=== PATIENT | male | born 1980 ===

== ENCOUNTER 2018-10-19 13:25 | Emergency (ER) | payer MEDICAID ==
[2018-10-19 13:38] VITALS: RESP 18; TEMP 98.8
[2018-10-19] MEDS ORDERED: Tdap Vaccine 0.5 ml Vial (10-64 yrs) IM ONE ×2 (13:40→14:20)
--- NOTE | 2018-10-19 14:01 | C.PDOC ---
History Of Present Illness 38 y/o male, with history of epilepsy and takes Keppra, is brought in by ambulance for seizure. As per EMS, patient developed generalized seizure that was witnessed by a bystander on the street. As per EMS, witness states the patient fell and hit his head on the ground and sustained a laceration to the right upper eyelid. Patient is presented to the ER post-ictal, confused, but improving quickly. Time Seen by Provider: 10/19/18 13:31 Chief Complaint (Nursing): Seizure History Per: EMS History/Exam Limitations: no limitations Recent Seizure Activity Began: Just Before Arrival Quality Of Seizure: Generalized Post-ictal Period: Yes Past Medical History Reviewed: Historical Data, Nursing Documentation, Vital Signs Vital Signs: Last Vital Signs Temp 98.8 F 10/19/18 13:31 Pulse 94 H 10/19/18 13:31 Resp 18 10/19/18 13:31 BP 132/83 10/19/18 13:31 Pulse Ox 95 10/19/18 13:31 - Medical History PMH: Seizures (HAD ONE 15 DAYS AGO) Denies: Diabetes, Hepatitis, HIV, HTN, Sexually Transmitted Disease Family History: States: No Known Family Hx - Social History Hx Tobacco Use: No Hx Alcohol Use: No Hx Substance Use: No - Immunization History Hx Tetanus Toxoid Vaccination: No Hx Influenza Vaccination: No Hx Pneumococcal Vaccination: No Review Of Systems Except As Marked, All Systems Reviewed And Found Negative. Musculoskeletal: Negative for: Neck Pain Skin: Positive for: Other (laceration to right upper eyelid) Neurological: Positive for: Seizures Physical Exam - Physical Exam Appears: Non-toxic, No Acute Distress Skin: Warm, Dry Head: Abrasion (to right face), Laceration (to right upper eyelid, no bleeding) Eye(s): bilateral: Normal Inspection Oral Mucosa: Moist Neck: Supple Cardiovascular: Rhythm Regular, No Murmur Respiratory: Normal Breath Sounds, No Rales, No Rhonchi, No Wheezing Gastrointestinal/Abdominal: Soft, No Tenderness Extremity: Bilateral: Atraumatic, Normal Color And Temperature, Normal ROM Neurological/Psych: Other (AAOx2) ED Course And Treatment - Laboratory Results Result Diagrams: 10/19/18 14:11 10/19/18 14:11 Lab Interpretation: No Acute Changes ECG: Interpreted By Me, Viewed By Me ECG Rhythm: Sinus Rhythm Interpretation Of ECG: Incomplete R BBB. Rate From EC O2 Sat by Pulse Oximetry: 95 (RA) Pulse Ox Interpretation: Normal - CT Scan/US Head CT Other Rad Studies (CT/US): Read By Radiologist, Radiology Report Reviewed CT/US Interpretation: FINDINGS: HEMORRHAGE: No intracranial hemorrhage. BRAIN : No mass effect or edema. Scattered focal lucencies in the subcortical and periventricular white matter suggestive for chronic microvascular ischemic change. Prominent cerebellar atrophy. VENTRICLES: Unremarkable. No hydrocephalus. CALVARIUM: Small defects noted within the bifrontal cranium. Clinical correlation. PARANASAL SINUSES: Unremarkable as visualized. No significant inflammatory changes. MASTOID AIR CELLS: Unremarkable as visualized. No inflammatory changes. OTHER FINDINGS: Prominent soft tissue swelling overlying the right frontal cranium and periorbital region. IMPRES SAURAV: Prominent soft tissue swelling overlying the right frontal cranium and periorbital region. No acute intracranial abnormality. Severe cerebellar atrophy. Chronic microvascular ischemic changes. Correlation with MRI may helpful if clinically indicated. Maxillofacial CT Other Rad Studies (CT/US): Read By Radiologist, Radiology Report Reviewed CT/US Interpretation: FINDINGS: Large amount of soft tissue swelling seen overlying the right frontal cranium, right periorbital region, and right pre maxillary soft tissues. No evidence of acute displaced fracture or dislocation of the visualized facial bones. Small defect seen within the posterior left frontal parietal cranium. Clinical correlation. Minimal mucosal thickening of the bilateral maxillary sinuses. Minimal mucosal thickening of the ethmoid air cells. Frontal sinus and sphenoid sinuses are preserved. Mastoid air cells are preserved. Orbital globes appear grossly preserved. Again noted is severe cerebellar atrophy. Impression: 1. Large amount of soft tissue swelling seen overlying the right frontal cranium, right periorbital region, and right pre maxillary soft tissues. 2. No evidence of acute displaced fracture or dislocation of the visualized facial bones. 3. Small defect seen within the posterior left frontal parietal cranium. Clinical correlation. 4. Again noted is severe cerebellar atrophy. 5. Minimal mucosal thickening of the bilateral maxillary sinuses. Minimal mucosal thickening of the ethmoid air cells. Progress Note: No seizure during ER observation. Alert and oriented x3. Mother present. Reassessment Condition: Improved Medical Decision Making Medical Decision Making: Plan: --Head CT --Labs --Tdap --Keppra 14:17 Patient is AAOx3 now. Disposition Counseled Patient/Family Regarding: Diagnosis, Need For Followup - Disposition Disposition: HOME/ ROUTINE Disposition Time: 16:21 Condition: STABLE Instructions: Epilepsy in Adults, Skin Abrasions (DC) Forms: Gen Discharge Inst Arabic, [facility] (Setswana), Work Excuse Print Language: VIET[place]ESE - Clinical Impression Clinical Impression: Seizure disorder, Seizure, Abrasion of face - Scribe Statement The provider has reviewed the documentation as recorded by the Kaleighibricky Keating Provider Attestation: All medical record entries made by the Elmer were at my direction and personally dictated by me. I have reviewed the chart and agree that the record accurately reflects my personal performance of the history, physical exam, medical decision making, and the department course for this patient. I have also personally directed, reviewed, and agree with the discharge instructions and disposition.
[2018-10-19 14:17] LABS: BASO % 1.2 % (0.0-2.0); EOS # 0.1 K/uL (0.0-0.7); HEMOGLOBIN 14.7 g/dL (12.0-18.0); LYMPH # 1.4 K/uL (1.0-4.3); LYMPH % 34.2 % (20.0-40.0); MEAN CORPUSCULAR HEMOGLOBIN 32.3 pg (27.0-31.0); MEAN CORPUSCULAR HGB CONC 35.3 g/dL (33.0-37.0); MEAN PLATELET VOLUME 7.2 fL (7.2-11.7); MONO # 0.4 K/uL (0.0-0.8); MONO % 9.5 % (0.0-10.0); NEUT # 2.1 K/uL (1.8-7.0); NEUT % 52.1 % (50.0-75.0); RBC 4.55 Mil/uL (4.40-5.90); RED CELL DISTRIBUTION WIDTH 13.8 % (11.5-14.5)
[2018-10-19 14:18] LABS: MEAN CELL VOLUME 91.4 fL (80.0-94.0)
[2018-10-19 14:28] LABS: ALB/GLOB RATIO 1.7 (1.0-2.1); ALBUMIN 4.3 g/dL (3.5-5.0); ALT/SGPT 26 U/L (21-72); AST/SGOT 26 U/L (17-59); BLOOD UREA NITROGEN 8 mg/dL (9-20); CALCIUM 9.2 mg/dl (8.6-10.4); GFR NON-AFRICAN AMERICAN > 60
--- NOTE | 2018-10-19 16:14 | CT ---
Date of service: 10/19/2018 PROCEDURE: CT HEAD WITHOUT CONTRAST. HISTORY: seizure COMPARISON: None available. TECHNIQUE: Axial computed tomography images were obtained through the head/brain without intravenous contrast. Radiation dose: Total exam DLP = 1089.95 mGy-cm. This CT exam was performed using one or more of the following dose reduction techniques: Automated exposure control, adjustment of the mA and/or kV according to patient size, and/or use of iterative reconstruction technique. FINDINGS: HEMORRHAGE: No intracranial hemorrhage. BRAIN: No mass effect or edema. Scattered focal lucencies in the subcortical and periventricular white matter suggestive for chronic microvascular ischemic change. Prominent cerebellar atrophy. VENTRICLES: Unremarkable. No hydrocephalus. CALVARIUM: Small defects noted within the bifrontal cranium. Clinical correlation. PARANASAL SINUSES: Unremarkable as visualized. No significant inflammatory changes. MASTOID AIR CELLS: Unremarkable as visualized. No inflammatory changes. OTHER FINDINGS: Prominent soft tissue swelling overlying the right frontal cranium and periorbital region. IMPRESSION: Prominent soft tissue swelling overlying the right frontal cranium and periorbital region. No acute intracranial abnormality. Severe cerebellar atrophy. Chronic microvascular ischemic changes. Correlation with MRI may helpful if clinically indicated.
--- NOTE | 2018-10-19 16:23 | CT ---
CT maxillofacial HISTORY: Trauma. COMPARISON: None available. TECHNIQUE: Multiple contiguous axial images were performed through the facial region without the use of intravenous contrast. Subsequently, sagittal and coronal reformatted images were obtained. FINDINGS: Large amount of soft tissue swelling seen overlying the right frontal cranium, right periorbital region, and right pre maxillary soft tissues. No evidence of acute displaced fracture or dislocation of the visualized facial bones. Small defect seen within the posterior left frontal parietal cranium. Clinical correlation. Minimal mucosal thickening of the bilateral maxillary sinuses. Minimal mucosal thickening of the ethmoid air cells. Frontal sinus and sphenoid sinuses are preserved. Mastoid air cells are preserved. Orbital globes appear grossly preserved. Again noted is severe cerebellar atrophy. Impression: 1. Large amount of soft tissue swelling seen overlying the right frontal cranium, right periorbital region, and right pre maxillary soft tissues. 2. No evidence of acute displaced fracture or dislocation of the visualized facial bones. 3. Small defect seen within the posterior left frontal parietal cranium. Clinical correlation. 4. Again noted is severe cerebellar atrophy. 5. Minimal mucosal thickening of the bilateral maxillary sinuses. Minimal mucosal thickening of the ethmoid air cells.
[2018-10-19 16:37] VITALS: BP 119/72; PULSE 83
[2018-10-19 17:15] VITALS: O2SAT 95
--- NOTE | 2018-10-20 15:15 | CARD ---
APPROVED REPORT Date of service: 10/19/2018 EKG Measurement Heart [id number] <Conclusion> Normal sinus rhythm Incomplete right bundle branch block Borderline ECG
== END 2018-10-19 16:49 | disposition home or self-care (01) ==
LOC: C.ER 13:25
DX: G40.909 Epilepsy, unspecified, not intractable, without status epilepticus (principal); S00.81XA Abrasion of other part of head, initial encounter; W18.30XA Fall on same level, unspecified, initial encounter
CPT/HCPCS: 70450; 70486; 80053; 80320; 82948; 85025; 90471; 90715; 93005; 96365; 99285; J1953